=== PATIENT | female | born 1995 | race Caucasian/White ===

== ENCOUNTER 2022-08-15 16:28 | Emergency (ER) | payer OTHER ==
[2022-08-15 16:42] VITALS: BP 113/66; PULSE 86; RESP 18; TEMP 97; BMI 20.9
== END 2022-08-15 18:52 | disposition left against medical advice (07) ==
LOC: JER 16:28
DX: R09.89 Other specified symptoms and signs involving the circulatory and respiratory systems (principal)
CPT/HCPCS: 70360-TC-FY; 99284-25

== ENCOUNTER 2024-06-04 09:54 | Emergency (ER) | payer OTHER ==
[2024-06-04 10:00] VITALS: BP 139/88; PULSE 86; RESP 20; TEMP 97.6
== END 2024-06-04 10:47 | disposition home or self-care (01) ==
LOC: JERFT 09:54
DX: Z03.821 Encounter for observation for suspected ingested foreign body ruled out (principal)
CPT/HCPCS: 99283-25